=== PATIENT | female | born 1980 | race Two or more races ===

== ENCOUNTER → 2021-06-12 | Day surgery (SDC) | payer OTHER | END | disposition home or self-care (01) | LOC: ADM 06-08 07:45 → CIR.AMB 06:31 | PROVIDERS: ATTEND Surgery | DX: K60.1 Chronic anal fissure (principal); U07.1 COVID-19; Z53.09 Procedure and treatment not carried out because of other contraindication ==

== ENCOUNTER 2021-07-03 05:08 | Day surgery (SDC) | payer OTHER ==
[2021-07-03] MEDS ORDERED: KETO10TA2 PO (09:05)
[2021-07-03] MEDS ORDERED: PERCOCET 5-3251 EACH PO (09:05)
[2021-07-03] MEDS ORDERED: DERMOPLAST PAIN78 GM TOP (09:06)
== END 2021-07-03 12:45 | disposition home or self-care (01) ==
LOC: CIR.AMB 05:08 → LAB 10:02 → CIR.AMB 10:03
PROVIDERS: ATTEND Surgery
DX: K60.1 Chronic anal fissure (principal); Z20.822 Contact with and (suspected) exposure to COVID-19